=== PATIENT | female | born 1940 | race African-American/Black ===

== ENCOUNTER 2017-08-27 11:06 | Emergency (ER) | payer OTHER ==
[2017-08-27] MEDS ORDERED: D50W 25 GM/50 ML SYRINGE IV ONE (11:14)
[2017-08-27 11:44] LABS: Absolute Lymphocytes (CBC) 1.3 K/uL (0.7-4.9); Absolute Monocytes 0.7 K/uL (0.1-1.3); Absolute Neutrophil 6.9 K/uL (1.8-8.0); Basophils % 0.7 % (0-1.3); Hematocrit 39.8 % (36.0-45.0); Lymphocytes % 14.1 % (15.3-44.8); MCH 26.9 pg (27.0-35.0); MCV 83.7 fL (80-100); MPV 8.8 fL (7.6-11.3); Monocytes % 8.1 % (3.3-12.3); RBC Red Blood Cell Count 4.75 M/uL (3.86-4.86)
[2017-08-27 11:47] LABS: Glucose Level 52 mg/dL (65-120)
[2017-08-27 11:48] LABS: BUN Blood Urea Nitrogen 10 mg/dL (6-20)
--- NOTE | 2017-08-27 11:49 | RAD REPORT ---
EXAM DESCRIPTION: CT - CTHCSPWOC - 08/27/2017 11:36 am CLINICAL HISTORY: Trauma, head and neck injury. COMPARISON: 07/18/2017 TECHNIQUE: Axial 5 mm thick images of the head were obtained. Axial 2 mm thick images of the cervical spine were obtained with sagittal and coronal reconstruction images generated and reviewed. All CT scans are performed using dose optimization technique as appropriate and may include automated exposure control or mA/KV adjustment according to patient size. FINDINGS: CT HEAD WITHOUT CONTRAST: No acute hemorrhage, hydrocephalus or extra-axial collection is identified.No areas of brain edema or midline shift. The paranasal sinuses and mastoids are clear.The calvarium is intact. CT CERVICAL SPINE WITHOUT CONTRAST: No fracture or subluxation.Prominent degenerative changes present at C5-6.No prevertebral soft tissue s swelling is identified. IMPRESSION: No acute intracranial or cervical spine findings. Spondylosis is noted mid cervical levels.
[2017-08-27 11:55] LABS: Bicarbonate 29 mEq/L (21-31); Potassium 3.5 mEq/L (3.6-5.0); Sodium Level 144 mEq/L (135-145)
--- NOTE | 2017-08-27 13:32 | RAD REPORT ---
EXAM DESCRIPTION: RAD - Pelvis - 08/27/2017 1:16 pm CLINICAL HISTORY: Found on ground, unknown injury COMPARISON: None. TECHNIQUE: AP imaging of the pelvis was obtained. FINDINGS: No fracture of the bony pelvis. Lower lumbar degenerative changes are present mild to mode rate degree but not fully assessed. No significant SI joint or pubic symphysis finding. Minimal degen erative change at the hip joints with no fracture or acute proximal femur finding. There is no pathol ogic bone process. Vascular calcifications are present. No suspicious soft tissue finding. IMPRESSION: Degenerative changes are present but no fracture or acute bone findings seen.
--- NOTE | 2017-08-27 13:33 | RAD REPORT ---
EXAM DESCRIPTION: RAD - Hip Right 2 View - 08/27/2017 1:16 pm CLINICAL HISTORY: Found on ground, possible hip injury COMPARISON: None. FINDINGS: AP and frog-leg views of the right hip were obtained. There is no fracture or dislocation . No AVN or focal femoral head abnormality. No significant degenerative change noted. Arterial calci fications are present. No periarticular mass or hematoma. IMPRESSION: Negative right hip examination for acute findings.
--- NOTE | 2017-08-27 13:35 | RAD REPORT ---
EXAM DESCRIPTION: RAD - Chest Single View - 08/27/2017 1:16 pm CLINICAL HISTORY: Found on ground, unknown precipitating event COMPARISON: July 18 TECHNIQUE: AP portable chest image was obtained 1305 hours . FINDINGS: No peripheral mass or consolidation. Interstitial markings are prominent but not substanti ally different from the comparison. Heart size within normal limits for portable imaging. No vascular engorgement. Trachea is midline. No measurable pleural effusion and no pneumothorax. No gross bony a bnormality seen. No acute aortic findings suspected. IMPRESSION: Lung markings are prominent but not clearly different from comparison. No significant failure or volume overload. Mild edema or interstitial infiltrates can be masked.
[2017-08-27] MEDS ORDERED: HYDROCODONE/APAP 5/325 MG TAB ONE (13:43)
--- NOTE | 2017-08-27 14:15 | EDPHYS ---
Physician Documentation [facility] Name: Josefa Bland Age: 77 yrs Sex: Female : 1940 Arrival Date: 08/27/2017 Time: 11:08 Bed 6 Private MD: ED Physician Rafi Hastings HPI: 08/27 12:09 This 77 yrs old Black Female presents to ER via EMS with complaints of Altered Mental jr8 Status, Low Blood Sugar. 12:09 Onset: The symptoms/episode began/occurred acutely, today. Possible causes: low blood jr8 sugar. Associated signs and symptoms: Pertinent positives: headache. Current symptoms: In the emergency department the patient's symptoms have improved, mildly. Patient's baseline: Neuro: alert and fully oriented, Motor: no deficits, Ambulation: unable to walk, Speech: normal. It is unknown whether or not the patient has had similar symptoms in the past. The patient has not recently seen a physician. Patient brought in by EMS after being called out by home health. Home health found patient lying on the floor with minimal responsiveness. Glucose found to be low. Patient alert to person, place, time, event currently. Sleepy. Complains of head/neck pain along with right hip pain . Historical: - Allergies: 11:24 IV contrast; hb - Home Meds: 11:24 Nitrostat 0.4 mg SL subl [Active]; atorvastatin 80 mg oral tab 1 tab once daily hb [Active]; Atrovent HFA 17 mcg/actuation inhalation HFAA [Active]; clopidogrel 75 mg oral tab 1 tab once daily [Active]; Diphenhydramine Oral [Active]; gabapentin 100 mg oral cap 1 caps 3 times per day [Active]; Lasix 20 mg Oral tab 2 times per day [Active]; metoprolol tartrate 25 mg Oral tab 1 tab 2 times per day [Active]; tramadol 50 mg Oral tab daily [Active]; valsartan 320 mg oral tab 1 tab once daily [Active]; - PMHx: 11:24 COPD; Diabetes - IDDM; Hypertension; Myocardial infarction; hb - PSHx: 11:24 Hysterectomy; hb - Immunization history:: Adult Immunizations up to date. - Social history:: Smoking status: Patient/guardian denies using tobacco. ROS: 12:09 Eyes: Negative for injury, pain, redness, and discharge, ENT: Negative for injury, jr8 pain, and discharge, Cardiovascular: Negative for chest pain, palpitations, and edema, Respiratory: Negative for shortness of breath, cough, wheezing, and pleuritic chest pain, Abdomen/GI: Negative for abdominal pain, nausea, vomiting, diarrhea, and constipation, Back: Negative for injury and pain, Skin: Negative for injury, rash, and discoloration. 12:09 Neck: Positive for pain with movement, pain at rest, tenderness. 12:09 MS/extremity: Positive for pain, tenderness, of the right leg. 12:09 Neuro: Positive for altered mental status, headache. Exam: 12:09 Eyes: Pupils equal round and reactive to light, extra-ocular motions intact. Lids and jr8 lashes normal. Conjunctiva and sclera are non-icteric and not injected. Cornea within normal limits. Periorbital areas with no swelling, redness, or edema. ENT: Nares patent. No nasal discharge, no septal abnormalities noted. Tympanic membranes are normal and external auditory canals are clear. Oropharynx with no redness, swelling, or masses, exudates, or evidence of obstruction, uvula midline. Mucous membranes moist. Neck: Trachea midline, no thyromegaly or masses palpated, and no cervical lymphadenopathy. Supple, full range of motion without nuchal rigidity, or vertebral point tenderness. No Meningismus. Cardiovascular: Regular rate and rhythm with a normal S1 and S2. No gallops, murmurs, or rubs. Normal PMI, no JVD. No pulse deficits. Respiratory: Lungs have equal breath sounds bilaterally, clear to auscultation and percussion. No rales, rhonchi or wheezes noted. No increased work of breathing, no retractions or nasal flaring. Abdomen/GI: Soft, non-tender, with normal bowel sounds. No distension or tympany. No guarding or rebound. No evidence of tenderness throughout. Back: No spinal tenderness. No costovertebral tenderness. Full range of motion. Skin: Warm, dry with normal turgor. Normal color with no rashes, no lesions, and no evidence of cellulitis. Neuro: Awake and alert, GCS 15, oriented to person, place, time, and situation. Cranial nerves II-XII grossly intact. Motor strength 5/5 in all extremities. Sensory grossly intact. Cerebellar exam normal. Normal gait. 12:09 Musculoskeletal/extremity: Extremities: grossly normal except: noted in the right leg: pain, tenderness, ROM: limited active range of motion, in the right leg, limited passive range of motion, in the right leg, limited active range of motion due to pain, in the right leg, limited passive range of motion due to pain, in the right leg, Circulation is intact in all extremities. Sensation intact. Vital Signs: 11:15 BP 123 / 67; Pulse 76; Resp 16; Temp 98.1; Pulse Ox 100% on R/A; Pain 0/10; hb 12:15 BP 136 / 80; Pulse 84; Resp 15; Pulse Ox 100% on R/A; hb 13:25 BP 126 / 68; Pulse 74; Resp 16; Pulse Ox 100% on R/A; hb 14:30 BP 136 / 74; Pulse 89; Resp 16; Pulse Ox 94% on R/A; aj MDM: 11:16 Patient medically screened. jr8 14:13 Data reviewed: vital signs, nurses notes, lab test result(s), radiologic studies, CT jr8 scan, plain films, and as a result, I will discharge patient. Data interpreted: Pulse oximetry: on room air is 100 %. Interpretation: normal. Counseling: I had a detailed discussion with the patient and/or guardian regarding: the historical points, exam findings, and any diagnostic results supporting the discharge/admit diagnosis, lab results, radiology results, the need for outpatient follow up, a family practitioner, to return to the emergency department if symptoms worsen or persist or if there are any questions or concerns that arise at home. Response to treatment: the patient's symptoms have resolved after treatment. ED course: Patient has remained alert and oriented while in ED. Glucose stabilized. Had a meal here and feeling better . 08/27 11:17 Order name: CBC with Diff; Complete Time: 12:01 jr8 08/27 11:17 Order name: Basic Metabolic Panel; Complete Time: 12:01 jr8 08/27 12:25 Order name: Glucose, Ancillary Testing; Complete Time: 12:51 EDMS 08/27 12:25 Order name: Glucose, Ancillary Testing; Complete Time: 12:51 EDMS 08/27 13:22 Order name: Glucose, Ancillary Testing; Complete Time: 13:25 EDMS 08/27 14:12 Order name: Glucose, Ancillary Testing; Complete Time: 14:15 EDUT 08/27 11:17 Order name: CT Head C Spine; Complete Time: 12:01 8 08/27 11:17 Order name: XRAY Chest (1 view); Complete Time: 13:45 jr8 08/27 11:17 Order name: XRAY Hip RIGHT 2 view; Complete Time: 13:45 jr8 08/27 11:17 Order name: XRAY Pelvis; Complete Time: 13:45 8 08/27 11:17 Order name: Diet Regular; Complete Time: 11:18 jr8 08/27 11:17 Order name: IV; Complete Time: 11:18 Administered Medications: 11:18 Drug: D50W 25 ml Route: IVP; Site: right antecubital; hb 12:00 Follow up: Response: No adverse reaction; Blood sugar is elevated hb 12:25 Drug: D50W 25 ml Route: IVP; Site: right antecubital; hb 13:30 Follow up: Response: No adverse reaction; Blood pressure is elevated hb 13:47 Drug: [place] 5 mg-325 mg 1 tabs Route: PO; aj 14:45 Follow up: Response: No adverse reaction; Pain is decreased hb Point of Care Testing: Blood Glucose: 12:23 Blood Glucose: 63 mg/dL; hb 13:21 Blood Glucose: 79 mg/dL; hb 14:02 Blood Glucose: 81 mg/dL; hb Ranges: Critical Glucose Levels:Adult <50 mg/dl or >400 mg/dl <40 mg/dl or >180 mg/dl Disposition: 08/28 07:10 Co-signature as Attending Physician, Rafi Hastings MD I agree with the assessment and wa plan of care. Disposition: 08/27/17 14:14 Discharged to Home. Impression: Hypoglycemia, unspecified, Contusion of right hip. - Condition is Stable. - Discharge Instructions: Hypoglycemia, Blood Glucose Monitoring, Adult, Hip Pain. - Medication Reconciliation Form, Thank You Letter, Antibiotic Education, Prescription Opioid Use form. - Follow up: Private Physician; When: 1 - 2 days; Reason: Recheck today's complaints, Continuance of care, Re-evaluation by your physician. - Problem is new. - Symptoms have improved. Signatures: Dispatcher [employer] EDLeeanna Krishnan RN Chad Feliciano PA PA jr8 Jud Wesley RN RN Rafi Hastings MD MD wa Corrections: (The following items were deleted from the chart) 08/27 14:36 14:14 08/27/2017 14:14 Discharged to Home. Impression: Hypoglycemia, unspecified; aj Contusion of right hip. Condition is Stable. Forms are Medication Reconciliation Form, Thank You Letter, Antibiotic Education, Prescription Opioid Use. Follow up: Private Physician; When: 1 - 2 days; Reason: Recheck today's complaints, Continuance of care, Re-evaluation by your physician. Problem is new. Symptoms have improved. jr8
--- NOTE | 2017-08-27 14:15 | ER ---
Nurse's Notes [facility] Name: Josefa Bland Age: 77 yrs Sex: Female : 1940 Arrival Date: 08/27/2017 Time: 11:08 Bed 6 Private MD: Diagnosis: Hypoglycemia, unspecified;Contusion of right hip Presentation: 08/27 11:09 Presenting complaint: EMS states: Found on floor bedside bed on right side lying hb position, right arm extended, unknown downtime, not on home O2. AOx1-2, BGL 56, BP108/58, SpO2 83 on RA, improved to 96% on 3LNC. 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 AOx4 at baseline. Transition of care: patient was not received from another setting of care. Onset of symptoms was August 27, 2017. 11:09 Method Of Arrival: EMS: [facility] hb 11:09 Acuity: RAVINDRA 2 hb 14:33 Initial Sepsis Screen: Does the patient meet any 2 criteria? No. Patient's initial aj sepsis screen is negative. Does the patient have a suspected source of infection? No. Patient's initial sepsis screen is negative. Care prior to arrival: None. Historical: - Allergies: 11:24 IV contrast; hb - Home Meds: 11:24 Nitrostat 0.4 mg SL subl [Active]; atorvastatin 80 mg oral tab 1 tab once daily hb [Active]; Atrovent HFA 17 mcg/actuation inhalation HFAA [Active]; clopidogrel 75 mg oral tab 1 tab once daily [Active]; Diphenhydramine Oral [Active]; gabapentin 100 mg oral cap 1 caps 3 times per day [Active]; Lasix 20 mg Oral tab 2 times per day [Active]; metoprolol tartrate 25 mg Oral tab 1 tab 2 times per day [Active]; tramadol 50 mg Oral tab daily [Active]; valsartan 320 mg oral tab 1 tab once daily [Active]; - PMHx: 11:24 COPD; Diabetes - IDDM; Hypertension; Myocardial infarction; hb - PSHx: 11:24 Hysterectomy; hb - Immunization history:: Adult Immunizations up to date. - Social history:: Smoking status: Patient/guardian denies using tobacco. Screenin:25 Abuse screen: Denies threats or abuse. Denies injuries from another. Nutritional hb screening: No deficits noted. Tuberculosis screening: No symptoms or risk factors identified. Fall Risk Total Harper Fall Scale indicates High Risk Score (45 or more points). Fall prevention measures have been instituted. Side Rails Up X 2 Frequent Obs/Assessments Occuring As available patient and family educated on Fall Prevention Program and Strategies. Assessment: 11:26 General: Appears in no apparent distress. Behavior is calm, cooperative. Pain: Denies hb pain. Neuro: Level of Consciousness is obeys commands, lethargic, Oriented to person, place, situation. Cardiovascular: Capillary refill < 3 seconds Patient's skin is warm and dry. Respiratory: Airway is patent Trachea midline Respiratory effort is even, unlabored, Respiratory pattern is regular, symmetrical, Breath sounds are clear bilaterally. GI: No signs and/or symptoms were reported involving the gastrointestinal system. : No signs and/or symptoms were reported regarding the genitourinary system. EENT: No signs and/or symptoms were reported regarding the EENT system. Derm: No signs and/or symptoms reported regarding the dermatologic system. Skin is intact, is healthy with good turgor, Skin is pink, warm \T\ dry. Musculoskeletal: No signs and/or symptoms reported regarding the musculoskeletal system. Circulation, motion, and sensation intact. 12:25 Reassessment: BGL 63, IGNACIO Bonilla notified, D50 administered as ordered. hb 12:29 Reassessment: Pt transported to radiology via stretcher. hb 13:20 Reassessment: Patient is alert/active/playful, equal unlabored respirations, skin hb warm/dry/pink. Pt returned from radiology via stretcher. 13:23 Reassessment: BGL 79. IGNACIO Bonilla notified, no new orders. Family at bedside. hb Vital Signs: 11:15 BP 123 / 67; Pulse 76; Resp 16; Temp 98.1; Pulse Ox 100% on R/A; Pain 0/10; hb 12:15 BP 136 / 80; Pulse 84; Resp 15; Pulse Ox 100% on R/A; hb 13:25 BP 126 / 68; Pulse 74; Resp 16; Pulse Ox 100% on R/A; hb 14:30 BP 136 / 74; Pulse 89; Resp 16; Pulse Ox 94% on R/A; aj ED Course: 11:08 Patient arrived in ED. hb 11:13 Triage completed. hb 11:16 Chad Thompson PA is PHCP. jr8 11:16 Rafi Hastings MD is Attending Physician. jr8 11:20 Arm band placed on right wrist. hb 11:[address] via stretcher. vr 11:29 CT completed. Patient tolerated procedure well. Patient moved back from CT. vr 11:36 CT Head C Spine In Process Unspecified. EDMS 12:00 Inserted saline lock: 20 gauge in right antecubital area, using aseptic technique. aj 12:29 Patient moved to radiology via stretcher. jb2 12:57 Jud Wesley, RN is Primary Nurse. hb 13:13 X-ray completed. Patient tolerated procedure well. Patient moved back from radiology. mh1 13:14 XRAY Chest (1 view) In Process Unspecified. EDMS 13:14 XRAY Hip RIGHT 2 view In Process Unspecified. EDMS 13:14 XRAY Pelvis In Process Unspecified. EDMS 14:30 Patient has correct armband on for positive identification. aj 14:30 No provider procedures requiring assistance completed. IV discontinued, intact, aj bleeding controlled, No redness/swelling at site. Pressure dressing applied. Administered Medications: 11:18 Drug: D50W 25 ml Route: IVP; Site: right antecubital; hb 12:00 Follow up: Response: No adverse reaction; Blood sugar is elevated hb 12:25 Drug: D50W 25 ml Route: IVP; Site: right antecubital; hb 13:30 Follow up: Response: No adverse reaction; Blood pressure is elevated hb 13:47 Drug: [place] 5 mg-325 mg 1 tabs Route: PO; aj 14:45 Follow up: Response: No adverse reaction; Pain is decreased hb Point of Care Testing: Blood Glucose: 12:23 Blood Glucose: 63 mg/dL; hb 13:21 Blood Glucose: 79 mg/dL; hb 14:02 Blood Glucose: 81 mg/dL; hb Ranges: Outcome: 14:14 Discharge ordered by . jr8 14:33 Discharged to home with crutches, with family. aj 14:33 Condition: good 14:33 Discharge instructions given to patient, family, Instructed on discharge instructions, follow up and referral plans. Demonstrated understanding of instructions, follow-up care. 14:36 Patient left the ED. aj Signatures: Dispatcher Keelvar Leeanna Espitia, PATRICE RN Pedro Issa jb2 Nuvia Elmore 1 Jenny Taveras Josh, PA PA jr8 Jud Wesley RN RN hb Corrections: (The following items were deleted from the chart) 11:21 11:18 BP 124 / 74; Pulse 82bpm; Resp 16bpm; Pulse Ox 95% 3 lpm Nasal Cannula; Temp 98F; hb hb
== END 2017-08-27 14:36 | disposition home or self-care (01) ==
LOC: ER 11:06
DX: E11.649 Type 2 diabetes mellitus with hypoglycemia without coma (principal); I10 Essential (primary) hypertension; I25.2 Old myocardial infarction; J44.9 Chronic obstructive pulmonary disease, unspecified; Z79.4 Long term (current) use of insulin; Z91.041 Radiographic dye allergy status
CPT/HCPCS: 36415; 70450; 71045; 72125; 72170; 80048; 82962; 85025; 96374; 99284

== ENCOUNTER 2017-12-01 07:00 | Day surgery (SDC) | payer OTHER ==
[2017-11-30 12:27] LABS: Absolute Lymphocytes (CBC) 1.3 K/uL (0.7-4.9); Absolute Monocytes 0.7 K/uL (0.1-1.3); Absolute Neutrophil 5.7 K/uL (1.8-8.0); Basophils % 0.8 % (0-1.3); Eosinophils % 1.7 % (0-4.4); Hematocrit 36.2 % (36.0-45.0); Lymphocytes % 16.3 % (15.3-44.8); MCH 27.5 pg (27.0-35.0); MCV 83.4 fL (80-100); MPV 8.7 fL (7.6-11.3); Monocytes % 9.2 % (3.3-12.3); RBC Red Blood Cell Count 4.34 M/uL (3.86-4.86)
[2017-11-30 12:31] LABS: Protime INR 1.06
[2017-11-30 12:42] LABS: Potassium 3.4 mmol/L (3.5-5.1)
--- NOTE | 2017-11-30 13:51 | RAD REPORT ---
EXAM DESCRIPTION: RAD - Chest Pa And Lat (2 Views) - 11/30/2017 1:33 pm CLINICAL HISTORY: Preop chest examination, pending cardiac catheterization, prior history of coronar y artery stenting COMPARISON: August 27, 2017 TECHNIQUE: PA and lateral views of the chest were obtained. FINDINGS: The lungs are normal volume. Bilateral lung base interstitial markings are prominent. In t he mid and upper rib lung wilcox the interstitial markings are minimally prominent. Scarring changes are present. There are no acute respiratory symptoms detailed. Patient probably has chronic interstit ial lung disease at each base. There is bilateral costophrenic angle blunting that is stable. Trache a is midline. Heart size is normal and central vasculature is within normal limits. No pneumothorax. No new or enlarging pleural fluid collection. No acute bony finding noted. No aortic abnormality. IMPRESSION: Prominent, chronic lung base interstitial disease. Vasculature and lung markings are mildly prominent. This is presumed to be baseline. No acute CHF/vol ume overload findings detailed.
[~2017-12-01 07:00] MED LIST: ATROPINE SULF 1 MG/10 ML SYR IV ONE; HEPA 1000U/500MLS 1,000 UNIT/500 ML BAG IV ONE; NA CHLORIDE 0.9% 0 ML ONE; NA CHLORIDE 0.9% 100 ML IV ONE
[2017-12-01] MEDS ORDERED: NA CHLORIDE 0.9% 500 ML ONE (07:36)
[2017-12-01] MEDS ORDERED: LIDOCAINE 1% MPF 5 ML VIAL ONE (07:43)
[2017-12-01] MEDS ORDERED: METHYLPREDNISOLONE 125 MG INJ ONE (08:06)
[2017-12-01] MEDS ORDERED: FENTANYL CITR 100 MCG/2 ML ONE ×2 (08:07→12:33)
[2017-12-01] MEDS ORDERED: MIDAZOLAM HCL 2 MG/2 ML INJ ONE ×2 (08:07→08:24)
[2017-12-01] MEDS ORDERED: INSULIN -REGULAR HUMAN 50 UNIT/0.5 ML ML ONE ×2 (08:18→10:44)
[2017-12-01] MEDS ORDERED: D50W 25 GM/50 ML SYRINGE IV PRN (10:32)
[2017-12-01] MEDS ORDERED: GLUCAGON 1 MG/VIAL IM PRN (10:32)
--- NOTE | 2017-12-01 11:24 | OP ---
Surgeon: Juan Valente MD Additional Attending Physician: Dr. Rafi Beard. Procedure Findings: The patient has severe aortic stenosis. The estimated aortic valve area is 0.77 cm2. The mean gradient was 21 mmHg. Cardiac output 4.5 L/minute, and there is severe pulmonary hyp ertension with an RV pressure of 85/11 and a pulmonary artery pressure of 78/30. Pulmonary capillary wedge pressure was 21. The coronary arteries were free of any significant stenosis. There is diffu se [id number] disease with calcification, plaque, and some narrowings up to 40%. Ejection frac tion was not calculated because of the severe aortic stenosis. The ejection fraction from an echocar diogram is between 60% and 69%. Procedure In Detail: The patient was brought to the cardiac radiographer cardiac catheterization in a fasting state. She gave u s informed consent. The right femoral artery and veins were used for the procedure. She was prepare d and draped in usual sterile fashion, sedated with Versed and fentanyl. A 1% lidocaine was used to anesthetize the skin around the right femoral artery, right femoral vein. Right femoral artery was e ntered using an 18-gauge needle and modified Seldinger technique. A 4-Croatian sheath was used for the remainder of the left heart procedures. Right femoral vein was entered using an 18-gauge needle, sh ort J-wire, modified Seldinger technique, and 8-[place]at[place] sheath. We used this to place a [place] Ashok cat heter into the right heart. We did thermal dilution. Cardiac outputs and pressures were measured by routine manometry techniques. A JL-4 failed to engage coronary arteries. A JL5 engaged the left co ronary well. A 3DRC engaged the right coronary and was used to cross the aortic valve as well with a straight wire. There was no LV gram, but a pullback was done to estimate the aortic valve gradient and aid in the calculation of the estimated aortic valve area. At the end of the procedure, an angio gram was done of the right femoral artery. Adequate anatomy was seen. Arteriotomy closed with an An brent-Seal device. Manual pressure was used to close the right femoral vein. After that, sheath was r emoved. There were no complications from the procedure. The diagnosis is severe aortic stenosis, se brandon pulmonary hypertension. The recommendation is for transcutaneous aortic valve replacement. She will see Dr. Jaya Cook at [facility] to make a consideration for proceeding wit h transcutaneous aortic valve replacement. TORI/SYLWIA Voice ID: [id number] Report ID: [id number]
[2017-12-01] MEDS ORDERED: INSULIN -REGULAR HUMAN 50 UNIT/0.5 ML ML SQ SCH (11:30)
[2017-12-01] MEDS ORDERED: ACETAMINOPHEN 325 MG TABLET ONE (11:40)
== END 2017-12-01 13:06 | disposition home or self-care (01) ==
LOC: CCL 07:00
PROVIDERS: ATTEND Internal Medicine
PROC: 4A023N7 Measurement of Cardiac Sampling and Pressure, Left Heart, Percutaneous Approach (ICD-10-PCS; principal; 2017-12-01)
DX: I35.0 Nonrheumatic aortic (valve) stenosis (principal); I27.20 Pulmonary hypertension, unspecified
CPT/HCPCS: 36415; 71046; 80048; 82962 ×2; 85025; 85610; 85730; 93460; C1760; C1893; J2250 ×2; J2930; J3010 ×2; J0583

== ENCOUNTER 2018-04-01 13:04 | Emergency (ER) | payer OTHER ==
[2018-04-01] MEDS ORDERED: LEVALBUTEROL 1.25 MG/3 ML NEB ONE (13:58)
[2018-04-01] MEDS ORDERED: METHYLPREDNISOLONE 125 MG INJ ONE (13:58)
[2018-04-01 14:22] LABS: Absolute Monocytes 0.7 K/uL (0.1-1.3); Absolute Neutrophil 7.8 K/uL (1.8-8.0); Basophils % 0.6 % (0-1.3); Eosinophils % 2.3 % (0-4.4); Lymphocytes % 10.5 % (15.3-44.8); MCH 26.2 pg (27.0-35.0); MCV 79.9 fL (80-100); MPV 9.1 fL (7.6-11.3); Monocytes % 7.4 % (3.3-12.3); RBC Red Blood Cell Count 4.01 M/uL (3.86-4.86)
[2018-04-01 14:32] LABS: Potassium 3.2 mmol/L (3.5-5.1)
--- NOTE | 2018-04-01 14:54 | RAD REPORT ---
EXAM DESCRIPTION: RAD - Chest Single View - 04/01/2018 2:03 pm CLINICAL HISTORY: Weakness, shortness of breath, CHF history COMPARISON: November 30, 2017 TECHNIQUE: AP portable chest image was obtained 1358 hours . FINDINGS: Lung volumes are low. Interstitial markings are prominent throughout the chest partly due to shallow inspiration. Bilateral pleural effusions are present. Cardiomegaly and vascular engorgemen t are present. No pneumothorax. No acute bony abnormality seen. No acute aortic findings suspected. IMPRESSION: Mild CHF/volume overload pattern.
--- NOTE | 2018-04-01 15:07 | RAD REPORT ---
EXAM DESCRIPTION: CT - Head Brain Wo Cont - 04/01/2018 2:50 pm CLINICAL HISTORY: Left-sided weakness COMPARISON: CT head August 2012 TECHNIQUE: Axial 5 mm thick images of the head were obtained without IV contrast. All CT scans are performed using dose optimization technique as appropriate and may include automated exposure control or mA/KV adjustment according to patient size. FINDINGS: No intracranial hemorrhage, mass, edema or shift of mid-line structures. No acute cortical based infarction. No cortical edema or sulcal effacement. Mild atrophy and mild to moderate chronic ischemic changes are present. No abnormal extra-axial fluid collections. Ventricles are in proportion to any volume loss. Arterial and physiologic calcifications are present. Mastoid air cells and visualized portions of the paranasal sinuses are clear. No acute bony findings. IMPRESSION: No hemorrhage, mass or acute cortical infarction. No significant changes from comparison . Mild atrophy and mild to moderate chronic ischemic changes are present. Chronic ischemic changes can mask nonhemorrhagic acute infarction. MR brain followup can be obtained if there is ongoing concern for acute ischemia.
--- NOTE | 2018-04-01 17:02 | ER ---
Nurse's Notes [facility] Name: Josefa Bland Age: 77 yrs Sex: Female : 1940 Arrival Date: 04/01/2018 Time: 13:08 Bed 6 Private MD: Rafi Beard E Diagnosis: Dementia in other diseases classified elsewhere;Other chronic obstructive pulmonary disease Presentation: 04/01 13:16 Presenting complaint: Child states: She has been having right sided weakness for a la1 couple days and has just given up on life states "I am ready to go". Transition of care: patient was not received from another setting of care. Onset of symptoms was April 01, 2018. Risk Assessment: Do you want to hurt yourself or someone else? Patient reports no desire to harm self or others. 13:16 Method Of Arrival: Wheelchair la1 13:16 Acuity: RAVINDRA 2 la1 15:48 Initial Sepsis Screen: Does the patient meet any 2 criteria? Altered Mental Status. ph Does the patient have a suspected source of infection? No. Patient's initial sepsis screen is negative. Care prior to arrival: None. Historical: - Allergies: 13:18 IV contrast; la1 - Home Meds: 17:05 atorvastatin 80 mg Oral tab 1 tab once daily [Active]; Atrovent HFA 17 mcg/actuation ph inhalation HFAA [Active]; clopidogrel 75 mg Oral tab 1 tab once daily [Active]; Diphenhydramine Oral [Active]; gabapentin 100 mg Oral cap 1 caps 3 times per day [Active]; Lasix 20 mg Oral tab 2 times per day [Active]; metoprolol tartrate 25 mg Oral tab 1 tab 2 times per day [Active]; Nitrostat 0.4 mg SL subl [Active]; tramadol 50 mg Oral tab daily [Active]; valsartan 320 mg Oral tab 1 tab once daily [Active]; - PMHx: 13:18 COPD; Diabetes - IDDM; Myocardial infarction; Hypertension; CHF; la1 - PSHx: 17:05 Hysterectomy; ph - Immunization history:: Adult Immunizations up to date. - Social history:: Smoking status: Patient/guardian denies using tobacco, the patient reports quitting approximately 20 years ago. - Ebola Screening: : No symptoms or risks identified at this time. - Family history:: not pertinent. - Hospitalizations: : No recent hospitalization is reported. Screenin:39 Abuse screen: Denies threats or abuse. Denies injuries from another. Nutritional ph screening: No deficits noted. Tuberculosis screening: No symptoms or risk factors identified. Fall Risk No fall in past 12 months (0 pts). No secondary diagnosis (0 pts). IV access (20 points). Ambulatory Aid- None/Bed Rest/Nurse Assist (0 pts). Gait- Weak (10 pts.). Mental Status- Overestimates/Forgets Limitations (15 pts.). Total Harper Fall Scale indicates High Risk Score (45 or more points). Fall prevention measures have been instituted. Side Rails Up X 2 Placed Close to Nursing Station Frequent Obs/Assessments Occuring Family Present and informed to notify staff if the need to leave the bedside As available patient and family educated on Fall Prevention Program and Strategies. Assessment: 13:30 General: Appears in no apparent distress. uncomfortable, obese, well groomed, Behavior ph is cooperative, drowsy, quiet. Pain: Complains of pain in chest. Neuro: Level of Consciousness is obeys commands, confused, lethargic, listless, Oriented to person, place. Cardiovascular: Reports chest pain, fatigue, shortness of breath, Capillary refill is sluggish Patient's skin is warm and dry. Rhythm is sinus rhythm. Respiratory: Airway is patent Respiratory effort is even, unlabored, Respiratory pattern is regular, symmetrical. GI: Abdomen is non-distended, obese, Patient currently denies abdominal pain, nausea. Derm: Skin is intact, Skin is pink, warm \\T\\ dry. 14:30 Reassessment: Patient appears in no apparent distress at this time. Patient and/or ph family updated on plan of care and expected duration. Pain level reassessed. Pt remains drowsy, oriented to person and place, VSS at this time, awaiting lab and radiology results. 15:30 Reassessment: Patient appears in no apparent distress at this time. No changes from previously documented assessment. Patient and/or family updated on plan of care and expected duration. Pain level reassessed. 16:20 Reassessment: Patient appears in no apparent distress at this time. Patient and/or ph family updated on plan of care and expected duration. Pain level reassessed. Pt awake but remains drowsy, oriented to person, place and situation, straight cathed to obtain urine sample, pt tolerated, sent to lab for micro, awaiting results, family at bedside. 17:41 Reassessment: Patient appears in no apparent distress at this time. Patient and/or ph family updated on plan of care and expected duration. Pain level reassessed. Patient is alert, oriented x 3, equal unlabored respirations, skin warm/dry/pink. Pt d/c home w/ daughter, placed on home o2 at 2L prior to d/c. Vital Signs: 13:18 BP 117 / 62; Pulse 80; Resp 18; Temp 97.8; Pulse Ox 79% on R/A; la1 14:28 BP 150 / 71; Pulse 73; Resp 18; Pulse Ox 96% on 2 lpm NC; ph 15:49 BP 143 / 52; Pulse 73; Resp 18; Pulse Ox 97% on R/A; ph 16:00 BP 136 / 46; Pulse 71; Resp 16; Pulse Ox 96% on 2 lpm NC; sv 16:54 BP 140 / 59; Pulse 72; Resp 18; Pulse Ox 97% on 2 lpm NC; sv 17:41 BP 154 / 67; Pulse 76; Resp 18; Temp 97.4; Pulse Ox 100% on 2 lpm NC; ph ED Course: 13:08 Patient arrived in ED. sb2 13:08 Rafi Beard MD is Private Physician. sb2 13:17 Triage completed. la1 13:18 Arm band placed on right wrist. la1 13:20 Gama Yepez MD is Attending Physician. rn 13:32 First set of blood cultures drawn by ct. gm 13:43 Paula Barajas, RN is Primary Nurse. ph 13:50 EKG done, by ep tech. reviewed by Gama Yepez MD. dt2 13:52 Second set of blood cultures drawn by ct. gm 14:05 Inserted saline lock: 20 gauge in right antecubital area, using aseptic technique. gm 14:05 Initial lab(s) drawn, by ct, sent to lab. gm 14:40 Chest Single View In Process Unspecified. EDMS 14:51 Head Brain Wo Cont In Process Unspecified. EDMS 15:48 Patient has correct armband on for positive identification. Bed in low position. Call ph light in reach. Side rails up X2. cardiac monitor on. Pulse ox on. NIBP on. Warm blanket given. 16:20 Straight cath inserted, using sterile technique, 16 Fr. Specimen obtained. Returned ph clear yellow urine. Patient tolerated well. 17:06 No provider procedures requiring assistance completed. ph 17:43 IV discontinued, intact, bleeding controlled, No redness/swelling at site. Pressure ph dressing applied. Administered Medications: 14:00 Drug: SOLU-Medrol 125 mg Route: IVP; Site: right antecubital; ph 14:38 Follow up: Response: No adverse reaction ph 14:00 Drug: Xopenex (3) 1.25 mg Route: Inhalation; ph 14:38 Follow up: Response: No adverse reaction ph Outcome: 17:02 Discharge ordered by . rn 17:42 Discharged to home via wheelchair, with family. ph 17:42 Condition: improved 17:42 Discharge instructions given to patient, family, Instructed on discharge instructions, follow up and referral plans. medication usage, Demonstrated understanding of instructions, follow-up care, medications, Prescriptions given X 2. 17:43 Patient left the ED. ph Signatures: Dispatcher [employer] Eva Wang, RN Gama Rodriguez MD MD rn Attema, Lee, RN RN la1 Hall, Patricia, RN RN Yazmin Sorensen Danielle dt2 Moya, Gabriella gm
--- NOTE | 2018-04-01 17:03 | EDPHYS ---
Physician Documentation [facility] Name: Josefa Bland Age: 77 yrs Sex: Female : 1940 Arrival Date: 04/01/2018 Time: 13:08 Bed 6 Private MD: Rafi Beard E ED Physician Gama Yepez HPI: 04/01 16:09 This 77 yrs old Black Female presents to ER via Wheelchair with complaints of SIDE rn PAIN, Memory Loss. 16:09 The patient's problem is reported as altered mental status. rn 16:10 Onset: The symptoms/episode began/occurred at an unknown time. Duration: The episodes rn are intermittent. The symptoms are alleviated by nothing. The symptoms are aggravated by nothing. Severity of symptoms: At their worst the symptoms were mild in the emergency department the symptoms are unchanged. The patient has experienced similar episodes in the past. Family reports all joints hurting lately, worse over last week, having intermittent pain, + COPD with increased sob, no fever, also reports has been giving up on life, doesn't want to live anymore, no suicidal attempt or overdose. Daughter feels like she has dementia and is slowly declining with loss of memory. . Historical: - Allergies: 13:18 IV contrast; la1 - Home Meds: 17:05 atorvastatin 80 mg Oral tab 1 tab once daily [Active]; Atrovent HFA 17 mcg/actuation ph inhalation HFAA [Active]; clopidogrel 75 mg Oral tab 1 tab once daily [Active]; Diphenhydramine Oral [Active]; gabapentin 100 mg Oral cap 1 caps 3 times per day [Active]; Lasix 20 mg Oral tab 2 times per day [Active]; metoprolol tartrate 25 mg Oral tab 1 tab 2 times per day [Active]; Nitrostat 0.4 mg SL subl [Active]; tramadol 50 mg Oral tab daily [Active]; valsartan 320 mg Oral tab 1 tab once daily [Active]; - PMHx: 13:18 COPD; Diabetes - IDDM; Myocardial infarction; Hypertension; CHF; la1 - PSHx: 17:05 Hysterectomy; ph - Immunization history:: Adult Immunizations up to date. - Social history:: Smoking status: Patient/guardian denies using tobacco, the patient reports quitting approximately 20 years ago. - Ebola Screening: : No symptoms or risks identified at this time. - Family history:: not pertinent. - Hospitalizations: : No recent hospitalization is reported. ROS: 16:10 Constitutional: Negative for fever, chills, and weight loss, Eyes: Negative for injury, rn pain, redness, and discharge, ENT: Negative for injury, pain, and discharge, Neck: Negative for injury, pain, and swelling, Cardiovascular: Negative for chest pain, palpitations, and edema, Respiratory: + cough and sob. Abdomen/GI: Negative for abdominal pain, nausea, vomiting, diarrhea, and constipation, MS/Extremity: Negative for injury and deformity, Skin: Negative for injury, rash, and discoloration, Neuro: + generalized weakness Exam: 16:10 Constitutional: Overweight female, able to ambulate to bed Head/Face: Normocephalic, rn atraumatic. Eyes: Pupils equal round and reactive to light, extra-ocular motions intact. ENT: MMM Cardiovascular: Regular rate and rhythm. No pulse deficits. Respiratory: + diffuse exp wheezing and mild tachypnea, speaks 5-6 word sentences, appears labored. Abdomen/GI: soft, non-tender MS/ Extremity: Pulses equal, no cyanosis. Neurovascular intact. Full, normal range of motion. Equal circumference. Neuro: Awake and alert, GCS 15, oriented to person, place, time, and situation. Cranial nerves II-XII grossly intact. Motor strength 5/5 in all extremities. Sensory grossly intact. Cerebellar exam normal. Slow but normal gait Vital Signs: 13:18 BP 117 / 62; Pulse 80; Resp 18; Temp 97.8; Pulse Ox 79% on R/A; la1 14:28 BP 150 / 71; Pulse 73; Resp 18; Pulse Ox 96% on 2 lpm NC; ph 15:49 BP 143 / 52; Pulse 73; Resp 18; Pulse Ox 97% on R/A; ph 16:00 BP 136 / 46; Pulse 71; Resp 16; Pulse Ox 96% on 2 lpm NC; sv 16:54 BP 140 / 59; Pulse 72; Resp 18; Pulse Ox 97% on 2 lpm NC; sv 17:41 BP 154 / 67; Pulse 76; Resp 18; Temp 97.4; Pulse Ox 100% on 2 lpm NC; ph MDM: 13:20 Patient medically screened. rn 16:58 Differential diagnosis: Dementia, metabolic disorder, COPD exacerbation. Data reviewed: rn vital signs, nurses notes, lab test result(s), EKG, radiologic studies, CT scan, plain films, and as a result, I will discharge patient. Counseling: I had a detailed discussion with the patient and/or guardian regarding: the historical points, exam findings, and any diagnostic results supporting the discharge/admit diagnosis, lab results, the need for outpatient follow up, to return to the emergency department if symptoms worsen or persist or if there are any questions or concerns that arise at home. Response to treatment: the patient's symptoms have markedly improved after treatment, the patient's condition has returned to base line, and as a result, I will discharge patient. Special discussion: I discussed with the patient/guardian in detail that at this point there is no indication for admission to the hospital. It is understood, however, that if the symptoms persist or worsen the patient needs to return immediately for re-evaluation. Based on the history and exam findings, there is no indication for further emergent testing or inpatient evaluation. I discussed with the patient/guardian the need to see the primary care provider for further evaluation of the symptoms. ED course: Pt with likely early dementia, + improved breathing from COPD exacerbation, no acute findings on CT head or CXR, no UTI, feels better, daughter reports at baseline, offered overnight observation for COPD exacerbation, family states at baseline and breathing normal for her, would like to take her home. . ED course: Family to f/u with PCP for further evaluation of likely dementia, COPD management, including nebulizer, and hospice later if that is what they wish. . 04/01 13:31 Order name: Urine Culture rn 04/01 13:31 Order name: Urine Microscopic Only rn 04/01 14:41 Order name: Basic Metabolic Panel; Complete Time: 15:55 EDMD 04/01 14:41 Order name: Procalcitonin; Complete Time: 15:55 EDMD 04/01 14:41 Order name: CBC with Automated Diff; Complete Time: 15:55 EDMD 04/01 14:41 Order name: Blood Culture EDMD 04/01 14:41 Order name: Blood Culture EDMD 04/01 16:30 Order name: Urine Dipstick--Ancillary (enter results) 04/01 13:31 Order name: IV Start; Complete Time: 14:34 rn 04/01 13:31 Order name: Urine Dipstick-Ancillary (obtain specimen); Complete Time: 16:28 rn 04/01 13:31 Order name: EKG; Complete Time: 14:59 rn 04/01 13:31 Order name: EKG - Nurse/Tech; Complete Time: 16:59 rn 04/01 13:47 Order name: Head Brain Wo Cont; Complete Time: 15:55 EDMS 04/01 13:48 Order name: Chest Single View; Complete Time: 15:55 EDMS Administered Medications: 14:00 Drug: SOLU-Medrol 125 mg Route: IVP; Site: right antecubital; ph 14:38 Follow up: Response: No adverse reaction ph 14:00 Drug: Xopenex (3) 1.25 mg Route: Inhalation; ph 14:38 Follow up: Response: No adverse reaction ph Disposition: 04/01/18 17:02 Discharged to Home. Impression: Dementia in other diseases classified elsewhere, Other chronic obstructive pulmonary disease. - Condition is Stable. - Discharge Instructions: Dementia, Chronic Obstructive Pulmonary Disease Exacerbation. - Prescriptions for Prednisone 20 mg Oral Tablet - take 3 tablet by ORAL route once daily for 5 days; 15 tablet. Albuterol Sulfate 90 mcg/actuation - inhale 1-2 puff by INHALATION route every 4-6 hours; 1 Inhaler. - Family Work Release, Medication Reconciliation Form, Thank You Letter, Antibiotic Education, Prescription Opioid Use form. - Follow up: Private Physician; When: 2 - 3 days; Reason: Recheck today's complaints, Re-evaluation by your physician. - Problem is new. - Symptoms have improved. Signatures: Dispatcher [employer] [facility] Gama Yepez MD MD rn Attema, Lee RN RN la1 Paula Barajas RN RN ph Corrections: (The following items were deleted from the chart) 15:06 14:59 Head Brain Wo Cont+CT.RAD.BRZ ordered. [facility] EDMD 15:06 15:00 Chest Single View+RAD.RAD.BRZ ordered. [facility] 17:43 17:02 04/01/2018 17:02 Discharged to Home. Impression: Dementia in other diseases ph classified elsewhere; Other chronic obstructive pulmonary disease. Condition is Stable. Forms are Medication Reconciliation Form, Thank You Letter, Antibiotic Education, Prescription Opioid Use. Follow up: Private Physician; When: 2 - 3 days; Reason: Recheck today's complaints, Re-evaluation by your physician. Problem is new. Symptoms have improved. rn
[2018-04-01 17:07] LABS: Urine Bacteria NONE SEEN /HPF (<20); Urine Culture Reflex Order NOT NEEDED; Urine RBC <5 /HPF (NONE SEEN)
[2018-04-01 19:28] LABS: Urine Blood TRACE (NEG); Urine Glucose TRACE (NEG); Urine Protein NEGATIVE (NEG)
--- NOTE | 2018-04-02 08:31 | EKG ---
Test Date: 2018-04-01 Test Time: 13:45:48 Pool Technician: ANNIE MEASUREMENT RESULTS: Intervals: Rate: 78 VA: 180 QRSD: 98 QT: 444 QTc: 506 Ambia: P: 57 VA: 180 QRS: -40 T: 56 INTERPRETIVE STATEMENTS: Normal sinus rhythm Left axis deviation Pulmonary disease pattern Prolonged QT Abnormal ECG Compared to ECG 07/18/2017 16:53:47 Left-axis deviation now present Prolonged QT interval now present Right-axis deviation no longer present T-wave abnormality no longer present Electronically Signed On 04-02-18 08:30:57 SENIOR ACCOUNTING ANALYST by Juan Valente
== END 2018-04-01 17:43 | disposition home or self-care (01) ==
LOC: ER 13:04
DX: F03.90 Unspecified dementia, unspecified severity, without behavioral disturbance, psychotic disturbance, mood disturbance, and anxiety (principal); J44.9 Chronic obstructive pulmonary disease, unspecified; I10 Essential (primary) hypertension; E11.9 Type 2 diabetes mellitus without complications; I50.9 Heart failure, unspecified; Z91.041 Radiographic dye allergy status
CPT/HCPCS: 36415; 51702; 70450; 71045; 80048; 84145; 85025; 87040 ×2; 87088; 93005; 96374; 99285; J2930; 81003; 81015; 87086